=== PATIENT | female | born 1930 | race Caucasian/White ===

== ENCOUNTER 2017-04-19 10:39 | Inpatient (IN) | payer MEDICARE, OTHER ==
[~2017-04-19] VITALS: Ht 152.4 cm; Wt 48.5 kg
[2017-04-19 10:48] VITALS: BP 144/50
[2017-04-19] MEDS ORDERED: CARVEDILOL12.5 MG PO (10:54)
[2017-04-19] MEDS ORDERED: BENAZEPRIL HCL40 MG PO (10:54)
[2017-04-19] MEDS ORDERED: AMLODIPINE BESY10 MG PO (10:54)
[2017-04-19] MEDS ORDERED: IBUPROFEN 200200 M1 PO (10:55)
[2017-04-19] MEDS ORDERED: SYNTHROID175 MCG PO (10:55)
[2017-04-19] MEDS ORDERED: TRAMADOL 50 MG50 MG PO (10:55)
[2017-04-19] MEDS ORDERED: ALDOMET250 MG PO (10:55)
[2017-04-19] MEDS ORDERED: ASPIR 8181 MG PO (10:55)
[2017-04-19 11:34] LABS: INFLUENZA A ANTIGEN None Detected (None Detect)
[2017-04-19 11:36] LABS: ANION GAP 11 mmol/L (7-16); BUN 15 mg/dL (7-18); CALCIUM 8.5 mg/dL (8.5-10.1); CHLORIDE 84 mmol/L (98-107); CO2 23 mmol/L (21-32); CREATININE 0.6 mg/dL (0.6-1.3); GLUCOSE 120 mg/dL (70-99); POTASSIUM 3.7 mmol/L (3.5-5.1)
[2017-04-19 11:37] LABS: MPV 6.4 fl. (7.2-11.1); NUCLEATED RBCS 0 /100WBC
[2017-04-19 11:38] LABS: HEMATOCRIT 32.7 % (37.0-47.0); HEMOGLOBIN 11.3 gm/dL (12.0-15.0); MCH 28.1 pg (26.0-34.0); MCHC 34.7 g/dL (28.0-37.0); MCV 81.1 fL (80.0-100.0); PLATELET COUNT* 426 thou/uL (150-400); RBC 4.04 mil/uL (4.20-5.00); RDW-CV 15.3 % (10.5-14.5); WBC 11.5 thou/uL (4.0-11.0)
[2017-04-19 11:39] LABS: SODIUM 118 mmol/L (136-145)
[2017-04-19 11:47] LABS: ALBUMIN 2.7 g/dL (3.4-5.0); ALKALINE PHOSPHATASE 106 U/L (46-116); NT-PRO BRAIN NAT PEPTIDE 554 pg/mL (<300); SGOT 25 U/L (15-37); SGPT 24 U/L (30-65); TOTAL BILIRUBIN 0.6 mg/dL (<0.1-1.0); TOTAL PROTEIN 6.7 g/dL (6.4-8.2); TROPONIN-I LEVEL <0.06 ng/mL (<0.06)
[2017-04-19 12:00] LABS: ABSOLUTE LYMPHOCYTES 0.8 thou/uL (0.8-5.3); ABSOLUTE MONOCYTES 1.3 thou/uL (0.0-1.2); ABSOLUTE NEUTROPHILS 9.4 thou/uL (1.6-8.1); ATYPICAL LYMPHS 3 %; HYPOCHROMASIA 2+; OVALOCYTES 1+; PLATELET ESTIMATE INCREASED; POIKILOCYTOSIS 2+
[2017-04-19 12:01] LABS: BURR CELLS Occasional
[2017-04-19 12:03] LABS: CALCIUM 8.5 mg/dL (8.5-10.1); CREATININE 0.6 mg/dL (0.6-1.3); POTASSIUM 3.6 mmol/L (3.5-5.1)
[2017-04-19 15:27] VITALS: BP 133/54
[2017-04-19 16:00] VITALS: BP 139/56
[2017-04-19 16:52] LABS: URINE POTASSIUM-RANDOM 11.4 mmol/L
[2017-04-19 17:52] LABS: URINE BILIRUBIN NEGATIVE (Negative); URINE BLOOD NEGATIVE (Negative); URINE CLARITY CLEAR; URINE COLOR YELLOW; URINE GLUCOSE-RANDOM NEGATIVE (Negative); URINE KETONES TRACE (Negative); URINE LEUKOCYTES NEGATIVE (Negative); URINE NITRITE NEGATIVE (Negative); URINE PROTEIN NEGATIVE (Negative); URINE SPECIFIC GRAVITY <= 1.005 (1.005-1.030)
[2017-04-19 21:36] VITALS: BP 166/58
[2017-04-20] VITALS: BP 136/56
[2017-04-20 04:25] LABS: CALCIUM 8.1 mg/dL (8.5-10.1); CREATININE 0.5 mg/dL (0.6-1.3); POTASSIUM 3.4 mmol/L (3.5-5.1)
[2017-04-20 08:00] VITALS: BP 107/56
--- NOTE | 2017-04-20 11:42 | EKG ---
[place] [address] ELECTROCARDIOGRAM REPORT Name: FEDETOMA Room: [address] ADM IN .R.#: [id number] Admission: 04/19/17 Attend Phys: Javed Dietz Discharge: Date of : 34 Report #: [id number] THIS REPORT FOR: //name// [facility] ED Test Date: 2017-04-19 Test Time: 11:34:47 Pat Name: TOMA MISTRY Department: Room: [facility] Gender: F Human Capital Analyst: Eliazar FARNSWORTH : 1930 Requested By: Jassi Mary Order Number: [id number] MD: Jorgito Rooney Measurements Intervals [place]ts Rate: 62 P: 20 HI: 55 QRS: 35 QRSD: 113 T: 50 QT: 421 QTc: 428 Interpretive Statements Sinus rhythm Atrial premature complexes in couplets Short HI interval Borderline intraventricular conduction delay No previous ECG available for comparison Electronically Signed On 04-20-2017 11:41:56 MANAGER OF ADMINISTRATION by Jorgito Rooney [email or web address] <ELECTRONICALLY SIGNED> By: Jorgito Rooney MD, [facility] 04/20/17 1141 1134 1134 Jorgito Rooney MD, [facility] /EPI
[2017-04-20 15:51] VITALS: BP 132/50
[2017-04-20 19:28] VITALS: BP 115/48
[2017-04-21] VITALS: BP 124/52
[2017-04-21 08:00] VITALS: BP 124/54
[2017-04-21] MEDS ORDERED: TAMIFLU30 MG PO (11:29)
[2017-04-21] MEDS ORDERED: BENZONATATE100 MG PO (11:32)
[2017-04-21 11:50] LABS: CALCIUM 8.3 mg/dL (8.5-10.1); CREATININE 0.6 mg/dL (0.6-1.3)
[2017-04-21 11:51] LABS: POTASSIUM 2.8 mmol/L (3.5-5.1)
[2017-04-21] MEDS ORDERED: KLOR-CON 10 ER10 MEQ PO (14:03)
[2017-04-21 14:32] VITALS: BP 141/52
[2017-04-21 14:46] VITALS: BP 145/78
[2017-04-21 15:56] VITALS: BP 130/54
== END 2017-04-21 17:50 | disposition home or self-care (01) | DRG 315 ==
LOC: M.ERS 10:39 → M.TBA-ER 12:21 → M.3W 12:21
PROVIDERS: Emergency Medicine; ADMIT Internal Medicine
DX: I95.9 Hypotension, unspecified (principal); E44.0 Moderate protein-calorie malnutrition; E87.1 Hypo-osmolality and hyponatremia; J11.1 Influenza due to unidentified influenza virus with other respiratory manifestations; E86.1 Hypovolemia; I10 Essential (primary) hypertension; J20.9 Acute bronchitis, unspecified; Z90.710 Acquired absence of both cervix and uterus; Z82.49 Family history of ischemic heart disease and other diseases of the circulatory system